=== PATIENT | male | born 1965 | race Caucasian/White ===

== ENCOUNTER 2016-09-09 08:47 | Inpatient (IN) ==
--- NOTE | 2016-09-08 21:12 | Discharge Summary ---
<Arlene Martini - Last Filed: 09/08/16 21:09> Date of Encounter: 09/08/16 - Discharge Diagnosis (1) Arthritis of knee, left Priority: Primary Status: Acute (2) Asthma Priority: Secondary Status: Chronic Qualifiers: Asthma severity: unspecified severity Asthma complication type: uncomplicated Qualified Code(s): J45.909 - Unspecified asthma, uncomplicated (3) Tobacco use Priority: Secondary Status: Chronic (4) Chronic pain Priority: Secondary Status: Chronic Qualifiers: Chronic pain type: other chronic pain Qualified Code(s): G89.29 - Other chronic pain - Discharge Medications Home Medications: Aspirin Enteric Coated [Aspirin EC] 325 mg PO DAILY #21 tablet.dr 09/08/16 [Rx] OxyCODONE Immed Rel [Roxicodone 5 MG] 5 - 10 mg PO Q6HR PRN #40 tablet 09/08/16 [Rx] Albuterol Sulfate [Albuterol Inhaler] 2 puff IH Q4HR PRN 09/09/16 [History] Allergies/Adverse Reactions: Allergies Cyclobenzaprine [From Flexeril] Allergy (Verified 09/09/16 09:27) Anaphylaxis diphenhydramine [From Benadryl] Allergy (Verified 09/09/16 09:27) Swelling of Lip/Tongue/Throat Primary care physician: PCP NO - Patient Status Disposition: Home, Self-Care Condition: Good - Discharge Instructions Follow Up With: Pasha Kennedy MD [Partnered Physician] - 10/08/16 10:05 am Arlene Martini PAC [Physician Employment Case Manager] - 09/19/16 8:30 am BOBPCP [Primary Care Provider] - Gordon Olson MD [Partnered Physician] - 02/28/17 2:15 pm - Hospital Course Hospital course: Mr. Dobbins is a 50 year old male - Time Spent with Patient Total time spent providing and/or coordinating discharge services: <Pasha Kennedy - Last Filed: 09/11/16 06:41> Date of Encounter: 09/11/16 Time of Encounter: 06:40 - Discharge Diagnosis (1) Arthritis of knee, left Priority: Primary Status: Acute (2) Asthma Priority: Secondary Status: Chronic Qualifiers: Asthma severity: unspecified severity Asthma complication type: uncomplicated Qualified Code(s): J45.909 - Unspecified asthma, uncomplicated (3) Tobacco use Priority: Secondary Status: Chronic (4) Chronic pain Priority: Secondary Status: Chronic Qualifiers: Chronic pain type: other chronic pain Qualified Code(s): G89.29 - Other chronic pain Primary care physician: PCP NO - Patient Status Functional capacity at discharge: uses cane/walker Overall status at discharge: patient is progressing back to baseline - Hospital Course Hospital course: Mr. Dobbins is a 50 year old male The patient had an uneventful postoperative course. They received antibiotics and physical therapy and were discharged in stable condition. There will follow -up in the office in 2 weeks. Aspirin DVT prophylaxis - Time Spent with Patient Total time spent providing and/or coordinating discharge services:
[2016-09-09] MEDS ORDERED: Vancomycin 1,000 MG in D5% in Water 250 ML IVPB ONE (09:10)
[2016-09-09] MEDS ORDERED: Lidocaine -MPF 1% 2 ML VIAL ID ONE (09:10)
[2016-09-09] MEDS ORDERED: Albuterol 2.5 MG/3 ML NEBULIZER IH ONE (09:10)
[2016-09-09] MEDS ORDERED: Ringers Solution, Lactated 1,000 ML IVC SCH ×2 (09:15→13:40)
[2016-09-09] MEDS ORDERED: Famotidine 20 MG/2 ML VIAL IVP ONE (09:20)
--- NOTE | 2016-09-09 09:23 | History & Physical Report ---
Date of Encounter: 09/09/16 Time of Encounter: 09:23 24 Hour HP Update - Instructions Instructions: If the History and Physical is less than 30 days old and was completed prior to A.M. admission and or procedure and has NOT been updated on calendar day of procedure please complete this update prior to performing procedure. - Update Patient reports changes in Medical Condition: No Changes in examination, assessment, or condition: No Changes in Medication: No Preop tests/diagnostics Reviewed: Yes Surgery Remains Indicated: Yes Consent for Planned Operative Procedure(s) Verified: Yes - Pre-Operative Checklist Preoperative Checklist Indicated: No Prophylactic Antibiotic Ordered: Yes Is VTE Prophylaxis Indicated?: Yes
--- NOTE | 2016-09-09 09:29 | Anesthesia Evaluation PreOp ---
Date of Encounter: 09/09/16 Time of Encounter: 09:25 - Past History Planned Operation: Left TKA Cardiac History: Denies any Significant Hx Pulmonary History: Smoker, Asthma VISCOSITY INSPECTOR History: Denies Any Significant HX Other Medical History: Other (PTSD Depression) Anesthesia History: No Prior Anesthetic Complications Alcohol Use: occasionally Drug use: none Medications and Allergies Albuterol Neb [Proventil Neb] 2.5 mg IH TID PRN 02/14/16 [History] Aspirin Enteric Coated [Aspirin EC] 325 mg PO DAILY #21 tablet. 09/08/16 [Rx] OxyCODONE Immed Rel [Roxicodone 5 MG] 5 - 10 mg PO Q6HR PRN #40 tablet 09/08/16 [Rx] Allergies Cyclobenzaprine [From Flexeril] Allergy (Verified 09/09/16 09:27) Anaphylaxis diphenhydramine [From Benadryl] Allergy (Verified 09/09/16 09:27) Swelling of Lip/Tongue/Throat - Meds/Allergy Pre-op Review Medications Reviewed: Yes Allergies Reviewed: Yes Beta Blockers on Current Med List: No Anesthesia Results - Labs Laboratory Tests 06/12/15 06/12/15 08/26/16 14:52 14:52 13:50 Hgb 17.3 H 12.6 L Hct 48.5 38.2 Plt Count 355 307 PT INR APTT Sodium 140 Potassium 3.4 L BUN 13 Creatinine 0.78 08/26/16 08/26/16 13:50 13:50 Hgb Hct Plt Count PT 10.3 INR 1.0 APTT 33.1 Sodium 140 Potassium 4.0 BUN 8 Creatinine 0.68 L Anesthesia Exam O2 Sat Height 1.61 m Weight 58.513 kg Height: 5'3 Weight: 129 lbs NPO (# of Hours): MN Pain Scale: 0 - HEENT Pupil (Motor): Pupils equal, EOMI Mallampati: II Teeth: Edentulous Oral Opening: Greater than 3 - VISCOSITY INSPECTOR LOC: Oriented VISCOSITY INSPECTOR Motor: Normal RUE, Normal LUE, Normal RLE, Normal LLE, Normal Face VISCOSITY INSPECTOR Sensory: Normal: RUE, LUE, RLE, LLE, Face - Cardiac Rhythm: Regular Murmur: None JVD: No Carotid Bruit: No - Pulmonary Breath Sounds: bilateral Clear Respiratory Effort: Symmetrical Anesthesia Assess/Plan ASA Score: 2 Modified Maura Scale for Level of Consciousness: Cooperative, oriented, and tranquil Anesthetic Plan: General, Regional Monitoring Plan: Standard Monitors Recovery Plan: PACU (Discussed GA and RA, agrees to proceed)
[2016-09-09] MEDS ORDERED: *HR* FentaNYL (PF) 100 MCG/2 ML VIAL ONE (10:12)
[2016-09-09] MEDS ORDERED: *HR* Propofol 200 MG/20 ML VIAL IVP ONE (10:12)
[2016-09-09] MEDS ORDERED: *HR* Midazolam HCl 2 MG/2 ML VIAL ONE ×2 (10:12→13:13)
[2016-09-09] MEDS ORDERED: Lidocaine -MPF 2% 2 ML VIAL ONE (10:12)
[2016-09-09] MEDS ORDERED: Ondansetron 4 MG/2 ML VIAL IVP ONE (10:54)
[2016-09-09] MEDS ORDERED: Tetracaine/PF 20 MG/2 ML AMPUL SPINA ONE (11:28)
--- NOTE | 2016-09-09 11:52 | Anesthesia Procedures ---
Date of Encounter: 09/09/16 Time of Encounter: 09:26 Procedures: Anesthesia - Nerve Block Procedure Date: 09/09/16 Time: 11:40 Pre-op Diagnosis: Left Knee OA Surgical Procedure: TKA Checklist: Correct Patient Identifier Correct side: Left Blood Thinner: No Monitor Applied: EKG, BP, Pulse Oximetry Supplemental Oxygen via Nasal Cannula (L/min): 2 Sedation: Versed (mg): 2 Sedation: Fentanyl (mcg): 100 Indication: Post Op Analgesia Pre-op Neuro Deficits: No Block Type: Femoral, Other (IPACK) Catheter placed: No Depth at skin (cm): 2 Sterile Technique: Yes Ultrasound used: Yes Anatomy identified: Yes Visual spread of Local: Yes Neuro Stimulation: Yes Nerve Stimulator Range: >0.4 - 0.6 mA Blood on Needle Aspiration: No Smooth Injection of Local: Yes Pain with Injection of Local: No Prep: Chlorhexadine Needle: 22 x 50 mm Stimuplex Local: 0.25% Bupivicaine w/Clonidine 20 mcg/cc, Tetracaine, Other (Bupivacaine 0.5%) Volume (cc): 30 Number of Attempts: 1 Complications: None/effective block Vitals: Vital Signs/O2 Sat/Glucose, Most Current Temp Pulse Resp BP Pulse Ox 09/09/16 11:48 75 16 105/44 99 09/09/16 11:21 53 16 99/74 99 09/09/16 09:46 22 115/74 95 09/09/16 09:28 98.2 F 53 22 115/74 95
[2016-09-09] MEDS ORDERED: *HR* HYDROmorphone 2 MG/ML SYRINGE ONE (12:19)
--- NOTE | 2016-09-09 12:38 | Orthopedic Operative Note ---
Date of procedure: 09/09/16 Pre-op diagnosis: left knee arthritis Post-op diagnosis: same Procedure: Procedure: left Total knee replacement Estimated blood loss: 300 cc Hardware: Arthrex Femur: 6 Tibia: 5 PS insert: 9 Patella:40 Exam Under anesthesia: Full flexion full extension no instability Procedural Notes: Grade 3 arthritic changes patellofemoral joint grade 4 arthritic changes lateral compartment Operative procedure: The patient was brought to the operating room and placed on the operating room table. After general anesthesia was administered the operative knee was examined. Findings were noted in the exam under anesthesia. The operative extremity was prepped and draped in sterile surgical fashion. The patient received IV antibiotics prior to skin incision. A standard midline incision was made centered over the patella. The incision was made through the skin and subcutaneous tissue. A medial parapatellar tendon approach was performed. Care was taken to preserve tissue along the medial aspect of the patella. And to protect the patella tendon. The deep MCL was released off the medial tibia. The infra patella fat pad was excised. Knee was brought into flexion. Patient noted to have grade 3 arthritic changes patellofemoral joint grade 4 arthritic changes lateral femoral condyle. The entry hole was made for the intramedullary femoral guide. The guide was seated in 6 degrees of valgus. Anterior cut was made followed by the distal cut. The ACL the PCL the medial and the lateral menisci were excised. The tibia was subluxed forward. The entry hole was made for the intramedullary tibial guide. Guide was seated to resect 2 mm off the more abnormal side. The knee was brought into flexion the distal femur was sized to a 6. The femoral guide was seated, the anterior cut was made followed by the posterior condylar cut, followed by the chamfer cuts. The finishing guide was seated the box cut was made and the lug holes were drilled. The tibia was sized to a 5, the tibial tray was seated and prepared with the large drill followed by the fin cutter. Trial reduction revealed full extension no varus valgus instability with the appropriate 9 PS Leatha. The patella was everted and cut was made at the level of the insertion of the quadriceps and patella tendon. The patella was sized the guide was seated and the lug holes are drilled. Trial reduction revealed excellent patella tracking. All trial components were removed all bony surfaces were irrigated. The tibia was cemented first followed by the femur. The 9 PS Leatha was seated and the knee was brought into full extension. The patella was cemented and held in place with the patellar holding clamp. After the cement had hardened, the knee sat for 2 minutes with a Betadine saline solution. The knee was then irrigated out with 2 L of pulse irrigation. The extensor mechanism was closed with #2 FiberWire suture and #2 PDS suture. The subcutaneous tissue was then irrigated and closed deep with #1 PDS suture superficially with 0 PDS suture and skin was closed with skin alison. The patient was then placed in a sterile dressing and a postoperative brace extubated and transferred to recovery room in stable condition. Anesthesia: MERVAT Surgeon: Pasha Kennedy Pictures Editor: Arlene Martini Condition: stable Disposition: PACU
[2016-09-09 13:22] LABS: Hematocrit 40.7 % (37.5-50.1); Hemoglobin 13.5 g/dL (12.9-16.9)
[2016-09-09] MEDS ORDERED: Sennosides 8.6 MG TABLET PO PRN (13:40)
[2016-09-09] MEDS ORDERED: MOM Conc 10 ML UD.LIQ PO PRN (13:40)
[2016-09-09] MEDS ORDERED: Acetaminophen 325 MG TABLET PO PRN (13:40)
[2016-09-09] MEDS ORDERED: Ondansetron 4 MG/2 ML VIAL IVP PRN (13:40)
[2016-09-09] MEDS ORDERED: Naloxone 0.4 MG/ML INJ IVP PRN (13:40)
[2016-09-09] MEDS ORDERED: *HR* OxyCODONE Immed Rel 5 MG TABLET PO PRN (13:40)
[2016-09-09] MEDS: *HR* OxyCODONE Immed Rel 5 MG TABLET PO PRN ×3 (14:08→22:42)
--- NOTE | 2016-09-09 14:08 | Anesthesia Evaluation Post Op ---
Date of Encounter: 09/09/16 Time of Encounter: 14:00 - Vital Signs Vital Signs: Vital Signs/O2 Sat/Glucose, Most Current Temp Pulse Resp BP Pulse Ox 09/09/16 13:48 97.5 F L 66 14 151/86 98 09/09/16 13:37 98.2 F 74 15 148/95 98 09/09/16 13:27 79 18 153/97 97 09/09/16 13:17 90 17 141/95 99 09/09/16 13:07 98.0 F 98 14 155/107 100 09/09/16 11:48 75 16 105/44 99 09/09/16 11:21 53 16 99/74 99 - Lungs Lungs: Clear Ascult./Percussion - Airway Airway: Non-obstructed - Cardiovascular Regular Rate - Mental Status Mental Status: Alert & Oriented, Answers Appropriately - Pain Pain Scale: 2 - Nausea Vomiting Nausea Vomiting: Not Present - Hydration Hydration: Ice chips - Discharge PostOp Status: Transfer Patient to floor
[2016-09-09] MEDS: *HR* HYDROmorphone (PF) 1 MG/ML SYRINGE IVP PRN ×2 (15:34→19:42)
[2016-09-09] MEDS: ceFAZolin 2,000 MG in D5% in Water 100 ML IVPB SCH ×2 (16:22→23:50)
[2016-09-09] MEDS: *HR* Enoxaparin 30 MG/0.3 ML SYRINGE SQ SCH (17:00)
[2016-09-09] MEDS ORDERED: *HR* Enoxaparin 30 MG/0.3 ML SYRINGE SQ SCH (18:00)
[2016-09-10] MEDS: *HR* HYDROmorphone (PF) 1 MG/ML SYRINGE IVP PRN ×5 (01:36→18:50)
[2016-09-10] MEDS: *HR* OxyCODONE Immed Rel 5 MG TABLET PO PRN ×5 (03:56→21:18)
[2016-09-10] MEDS: *HR* Enoxaparin 30 MG/0.3 ML SYRINGE SQ SCH ×2 (04:44→17:12)
--- NOTE | 2016-09-10 06:15 | Orthopedics Progress Note ---
Date of Encounter: 09/10/16 Time of Encounter: 06:14 - Assessment and Plan (1) Arthritis of knee, left Current Visit: Yes Status: Acute (2) Asthma Current Visit: Yes Status: Chronic Qualifiers: Asthma severity: unspecified severity Asthma complication type: uncomplicated Qualified Code(s): J45.909 - Unspecified asthma, uncomplicated (3) Tobacco use Current Visit: Yes Status: Chronic (4) Chronic pain Current Visit: Yes Status: Chronic Qualifiers: Chronic pain type: other chronic pain Qualified Code(s): G89.29 - Other chronic pain Subjective Interval history: Patient was seen this morning doing well without complaints. Afebrile vital signs stable. Operative extremity: Neurovascularly intact Dressing clean dry and intact Calves nontender Assessment and plan: Continue with postoperative care Hematocrit 40 Objective Vital signs: Vital Signs Temp Pulse Resp BP Pulse Ox 09/10/16 04:00 98.0 F 48 18 138/81 97 09/09/16 23:44 98.1 F 55 18 120/70 96 09/09/16 19:45 96 09/09/16 19:42 98.1 F 53 18 119/73 96 09/09/16 17:11 18 97 09/09/16 15:30 98.4 F 82 16 146/81 99 09/09/16 14:51 97.5 F L 82 16 130/83 99 09/09/16 14:20 98.1 F 67 16 146/83 99 09/09/16 13:48 97.5 F L 66 14 151/86 98 09/09/16 13:37 98.2 F 74 15 148/95 98 09/09/16 13:27 79 18 153/97 97 09/09/16 13:17 90 17 141/95 99 09/09/16 13:07 98.0 F 98 14 155/107 100 09/09/16 11:48 75 16 105/44 99 09/09/16 11:21 53 16 99/74 99 09/09/16 09:46 22 115/74 95 09/09/16 09:28 98.2 F 53 22 115/74 95 Intake and Output 09/09/16 09/09/16 09/10/16 15:59 23:59 07:59 Intake Total 300 / 300 Output Total 200 / 200 550 / 550 700 / 700 Balance -200 / -200 -250 / -250 -700 / -700 Intake: IV Fluids 100 / 100 Ancef 2,000 MG In 100 / 100 Dextrose 5% 100 ML @ 200 mls/hr IVPB Q8HR [facility] Rx#: [id number] Oral 200 / 200 Output: Urine 550 / 550 700 / 700 Estimated Blood Loss 200 / 200 Other: Meal Dinner Percent of Meal Consumed 25% Weight 58.513 kg - Labs CBC & BMP: 09/09/16 13:14 - VTE Documentation of Mechanical Device: Venous foot pump, device Consult Discharge Plan - Plan Referrals: NO,PCP [Primary Care Provider] -
[2016-09-10 06:22] LABS: Hematocrit 32.9 % (37.5-50.1)
[2016-09-10 06:23] LABS: Hemoglobin 10.8 g/dL (12.9-16.9)
[2016-09-10 06:32] LABS: BUN/Creatinine Ratio 10 (6-26); Blood Urea Nitrogen 7 mg/dL (8-26); Calcium 8.6 mg/dL (8.6-10.8); Carbon Dioxide 25 mEq/L (19-29); Chloride 103 mEq/L (98-109); Glucose 117 mg/dL (70-99); Osmolality,Calculated 285 (280-300); Potassium 3.7 mEq/L (3.5-4.5); Sodium 138 mEq/L (136-145); eGFR For African Americans > 60 (> 60); eGFR For Non-African Americans > 60 (> 60)
[2016-09-10] MEDS: Acetaminophen IV 1,000 MG/100 ML INFUS..BTL IVPB SCH ×2 (14:25→20:42)
[2016-09-10] MEDS: Temazepam 15 MG CAPSULE PO PRN (22:37)
[2016-09-11] MEDS: *HR* OxyCODONE Immed Rel 5 MG TABLET PO PRN ×5 (01:19→21:28)
[2016-09-11 04:53] LABS: Hemoglobin 10.7 g/dL (12.9-16.9)
[2016-09-11 05:17] LABS: BUN/Creatinine Ratio 8 (6-26); Calcium 8.9 mg/dL (8.6-10.8); Carbon Dioxide 25 mEq/L (19-29); Chloride 101 mEq/L (98-109); Glucose 142 mg/dL (70-99); Osmolality,Calculated 286 (280-300); Potassium 3.6 mEq/L (3.5-4.5); Sodium 138 mEq/L (136-145); eGFR For African Americans > 60 (> 60); eGFR For Non-African Americans > 60 (> 60)
[2016-09-11 05:19] LABS: Blood Urea Nitrogen 5 mg/dL (8-26)
[2016-09-11] MEDS: *HR* Enoxaparin 30 MG/0.3 ML SYRINGE SQ SCH ×2 (05:31→17:21)
[2016-09-11] MEDS: Acetaminophen IV 1,000 MG/100 ML INFUS..BTL IVPB SCH ×4 (06:23→21:29)
--- NOTE | 2016-09-11 06:41 | Orthopedics Progress Note ---
Date of Encounter: 09/11/16 Time of Encounter: 06:41 - Assessment and Plan (1) Arthritis of knee, left Current Visit: Yes Status: Acute (2) Asthma Current Visit: Yes Status: Chronic Qualifiers: Asthma severity: unspecified severity Asthma complication type: uncomplicated Qualified Code(s): J45.909 - Unspecified asthma, uncomplicated (3) Tobacco use Current Visit: Yes Status: Chronic (4) Chronic pain Current Visit: Yes Status: Chronic Qualifiers: Chronic pain type: other chronic pain Qualified Code(s): G89.29 - Other chronic pain Subjective Interval history: Patient was seen this morning doing well without complaints. Afebrile vital signs stable. Operative extremity: Neurovascularly intact Dressing clean dry and intact Calves nontender Assessment and plan: Continue with postoperative care Hematocrit 32 discharged today Objective Vital signs: Vital Signs Temp Pulse Resp BP Pulse Ox 09/11/16 06:24 97.8 F 73 16 158/87 95 09/11/16 01:15 97.5 F L 70 17 167/94 95 09/10/16 21:11 97 09/10/16 20:01 98.9 F 60 17 185/92 97 09/10/16 14:46 98.2 F 74 18 161/89 94 09/10/16 10:59 98.5 F 64 18 146/66 98 09/10/16 08:35 76 99 Intake and Output 09/10/16 09/10/16 09/11/16 15:59 23:59 07:59 Intake Total 120 / 120 400 / 400 Output Total 650 / 650 500 / 500 Balance -530 / -530 400 / 400 -500 / -500 Intake: IV Fluids 200 / 200 Ofirmev 1,000 mg In 100 200 / 200 ml @ 400 mls/hr IVPB Q6H [facility] Rx#:[id number] Oral 120 / 120 200 / 200 Output: Urine 650 / 650 500 / 500 Other: Meal Breakfast Percent of Meal Consumed 50% - Labs CBC & BMP: 09/11/16 04:01 09/11/16 04:01 Labs: Abnormal lab results Hgb 10.7 g/dL (12.9-16.9) L 09/11/16 04:01 Hct 32.0 % (37.5-50.1) L 09/11/16 04:01 BUN 5 mg/dL (8-26) L 09/11/16 04:01 Creatinine 0.63 mg/dL (0.72-1.25) L 09/11/16 04:01 Glucose 142 mg/dL (70-99) H 09/11/16 04:01 - VTE Documentation of Mechanical Device: Venous foot pump, device Consult Discharge Plan - Plan Referrals: Pasha Kennedy MD [Partnered Physician] - 10/08/16 10:05 am Arlene Martini, PAC [Physician Commercial Green Building Designer] - 09/19/16 8:30 am BOB,PCP [Primary Care Provider] - Gordon Olson MD [Partnered Physician] - 02/28/17 2:15 pm
[2016-09-11] MEDS: *HR* HYDROmorphone (PF) 1 MG/ML SYRINGE IVP PRN ×3 (10:50→19:38)
[2016-09-11] MEDS: Temazepam 15 MG CAPSULE PO PRN (21:28)
[2016-09-12] MEDS: *HR* HYDROmorphone (PF) 1 MG/ML SYRINGE IVP PRN (00:15)
[2016-09-12] MEDS: Acetaminophen IV 1,000 MG/100 ML INFUS..BTL IVPB SCH ×2 (00:48→09:52)
[2016-09-12] MEDS: *HR* OxyCODONE Immed Rel 5 MG TABLET PO PRN (04:49)
[2016-09-12] MEDS: *HR* Enoxaparin 30 MG/0.3 ML SYRINGE SQ SCH (06:35)
[2016-09-12 06:51] VITALS: BP 106/74
--- NOTE | 2016-09-12 06:56 | Venous Imaging Report ---
LE Venous Duplex Patient Name:Cornelio Dobbins Order Number:[id number] Procedure Date:09/11/2016 Date:1965Age:50 yrs Gender:Male Location:[facility] Room #: [id number] Facilities Administrator:Leanne Potter RDCS Referring MD:Pasha Kennedy MD launchman:None Reading MD:Cornelio Gudino MD Primary Indications:Swelling of limb Secondary Indications: Risk Factors Yes/No Anticoagulants Yes Recent Surgery Yes Impressions: Normal left lower extremity deep and superficial venous exam. Recommendations: Preliminary given to Rosana VORA. Findings Venous Duplex Results: Left: Venous imaging of the lower extremity reveals full patency and normal vessel compressibility of the left distal iliac, left common femoral, left superficial femoral, left popliteal, left posterior tibial, left peroneal, left great saphenous and left lesser saphenous. Doppler signals in the evaluated veins were normal. Prior Study: No prior study available for comparison. Lower Extremity Venous Duplex Side Vein Compress Spontaneous Flow Augment Diameter (cm) Depth (cm) Left Distal Iliac Normal Yes Phasic Yes Left Common Femoral Normal Yes Phasic Yes Left Superficial Femoral Normal Yes Phasic Yes Left Popliteal Normal Yes Phasic Yes Left Posterior Tibial Normal Yes Phasic Yes Left Peroneal Normal Yes Phasic Yes Left Great Saphenous Normal Yes Phasic Yes Left Lesser Saphenous Normal Yes Phasic Yes Updated by Cornelio Gudino MD on 09/12/2016 6:53:20 AM electronically signed on 09/12/2016 6:53:32 AM with status of Final
--- NOTE | 2016-09-12 08:13 | Orthopedics Progress Note ---
Date of Encounter: 09/12/16 Time of Encounter: 08:12 - Assessment and Plan (1) Arthritis of knee, left Current Visit: Yes Status: Acute (2) Asthma Current Visit: Yes Status: Chronic Qualifiers: Asthma severity: unspecified severity Asthma complication type: uncomplicated Qualified Code(s): J45.909 - Unspecified asthma, uncomplicated (3) Tobacco use Current Visit: Yes Status: Chronic (4) Chronic pain Current Visit: Yes Status: Chronic Qualifiers: Chronic pain type: other chronic pain Qualified Code(s): G89.29 - Other chronic pain Subjective Interval history: Patient was seen this morning doing well without complaints. Afebrile vital signs stable. Operative extremity: Neurovascularly intact Dressing clean dry and intact positive ecchymosis around the Calves nontender Assessment and plan: Continue with postoperative care Discharge held yesterday secondary to pain control will discharge today Objective Vital signs: Vital Signs Temp Pulse Resp BP Pulse Ox 09/12/16 06:50 98.6 F 132 17 106/74 97 09/12/16 04:46 98.2 F 90 17 108/64 98 09/12/16 00:17 98.2 F 116 16 107/71 96 09/11/16 20:00 97.7 F 115 18 133/96 99 09/11/16 15:58 97.9 F 118 18 158/101 96 09/11/16 10:26 97.8 F 65 16 148/86 96 Intake and Output 09/11/16 09/12/16 09/12/16 23:59 07:59 15:59 Intake Total 300 / 300 100 / 100 Output Total 800 / 800 Balance -500 / -500 100 / 100 Intake: IV Fluids 100 / 100 Ofirmev 1,000 mg In 100 100 / 100 ml @ 400 mls/hr IVPB Q6H [facility] Rx#:[id number] Oral 300 / 300 Output: Urine 800 / 800 Other: Meal Dinner - Labs CBC & BMP: 09/11/16 04:01 09/11/16 04:01 Labs: Abnormal lab results Hgb 10.7 g/dL (12.9-16.9) L 09/11/16 04:01 Hct 32.0 % (37.5-50.1) L 09/11/16 04:01 BUN 5 mg/dL (8-26) L 09/11/16 04:01 Creatinine 0.63 mg/dL (0.72-1.25) L 09/11/16 04:01 Glucose 142 mg/dL (70-99) H 09/11/16 04:01 - VTE Documentation of Mechanical Device: Venous foot pump, device Consult Discharge Plan - Plan Referrals: Pasha Kennedy MD [Partnered Physician] - 10/08/16 10:05 am Arlene Martini, PAC [Physician Mall Manager] - 09/19/16 8:30 am BOB,PCP [Primary Care Provider] - Gordon Olson MD [Partnered Physician] - 02/28/17 2:15 pm
== END 2016-09-12 12:12 | disposition home or self-care (01) | DRG 302 ==
LOC: SAMDAY 08:47 → 3NENU 13:42
PROVIDERS: ADMIT Orthopaedic Surgery; ATTEND Orthopaedic Surgery